=== PATIENT | female | born 1940 | race Caucasian/White ===

== ENCOUNTER 2021-11-06 23:12 | Inpatient (IN) ==
[2021-11-06] MEDS ORDERED: Tdap (Boostrix) Vaccine 0.5 ML SYRINGE IM ONE (23:34)
[2021-11-07 00:22] LABS: Basophils # 0.1 K/mcL (0.0-0.2); Basophils % 0.6 %; Eosinophils # 0.1 K/mcL (0.0-0.6); Eosinophils % 0.5 %; Hemoglobin 11.6 g/dL (11.5-15.4); Lymphocytes # 1.3 K/mcL (0.6-4.6); Lymphocytes % 13.5 %; Mean Corpuscular HGB Conc 31.4 g/dL (31.6-35.5); Mean Corpuscular Hemoglobin 27.4 pg (28.0-33.3); Mean Corpuscular Volume 87.3 fL (83.0-100.0); Mean Platelet Volume 10.4 fL (9.4-12.4); Monocytes # 0.7 K/mcL (0.0-1.3); Monocytes % 7.2 %; Neutrophils # 7.1 K/mcL (1.6-8.9); Platelet Count 172 K/mcL (140-400); Red Blood Count 4.24 M/mcL (3.82-4.97); Red Cell Distribution Width 16.4 % (11.5-14.5); Segmented Neutrophils % 76.2 %; White Blood Count 9.4 K/mcL (4.3-11.1)
[2021-11-07 00:28] LABS: INR 2.4; Prothrombin Time 26.4 Seconds (9.4-12.1)
[2021-11-07 00:29] LABS: Bilirubin,Urine Negative (Negative); Blood,Urine Small (Negative); Clarity,Urine Clear (Clear); Color,Urine Light-Yellow (Yellow); Glucose,Urine (UA) Normal (Normal); Ketones,Urine Negative (Negative); Leukocyte Esterase,Urine Negative (Negative); Mucus,Urine Few per lpf (None-Few); Nitrite,Urine Negative (Negative); Protein,Urine 70 mg/dL (Neg-Trace); Specific Gravity,Urine 1.012 (1.010-1.025); Squamous Epithelial Cell,Urine Moderate per hpf (None-Few); Urobilinogen,Urine Normal (Normal); WBC,Urine 0-3 per hpf (0-3)
[2021-11-07 00:30] LABS: Alanine Aminotransferase 28 Units/L (7-52); Albumin 3.8 g/dL (3.5-5.7); Albumin/Globulin Ratio 1.3 (1.1-2.2); Alkaline Phosphatase 104 Units/L (34-104); Aspartate Amino Transferase 39 Units/L (13-39); BUN/Creatinine Ratio 14 (6-26); Bilirubin,Direct 0.1 mg/dL (0.0-0.2); Bilirubin,Indirect 0.6 mg/dL (0.0-1.0); Bilirubin,Total 0.7 mg/dL (0.3-1.0); Blood Urea Nitrogen 36 mg/dL (8-23); Calcium 9.5 mg/dL (8.6-10.3); Carbon Dioxide 21 mEq/L (23-29); Chloride 108 mEq/L (98-107); Creatine Kinase 321 Units/L (30-223); Glucose 95 mg/dL (70-105); Lipase 16 Units/L (11-82); Osmolality,Calculated 292 (280-300); Potassium 5.1 mEq/L (3.5-5.1); Sodium 137 mEq/L (136-145); Total Protein 6.8 g/dL (6.4-8.9); Troponin I < 0.03 ng/mL (< 0.04)
[2021-11-07 00:43] LABS: Thyroid Stimulating Hormone 10.754 mcIU/mL (0.340-5.600)
[2021-11-07] MEDS ORDERED: Naloxone 0.4 MG/ML INJ IVP PRN (04:04)
[2021-11-07] MEDS ORDERED: Ondansetron ODT 4 MG TAB.RAPDIS SL PRN (04:04)
[2021-11-07] MEDS ORDERED: Melatonin 3 MG TABLET PO PRN (04:04)
[2021-11-07] MEDS ORDERED: Ringers Solution, Lactated 1,000 ML IVC SCH (04:15)
[2021-11-07 05:30] LABS: Estimated Average Glucose 123 mg/dl; Hemoglobin A1C 5.9 %
[2021-11-07] MEDS: Doxycycline 100 MG CAPSULE PO SCH ×2 (08:13→22:07)
[2021-11-07 10:47] LABS: INR 2.3
[2021-11-07] MEDS ORDERED: *HR* Warfarin 2.5 MG TABLET PO ONE (18:00)
[2021-11-07] MEDS ORDERED: Warfarin perPT PO PRN (18:00)
[2021-11-08 03:38] LABS: INR 1.5; Prothrombin Time 17.1 Seconds (9.4-12.1)
[2021-11-08] MEDS: Doxycycline 100 MG CAPSULE PO SCH ×2 (09:14→21:29)
[2021-11-08] MEDS ORDERED: *HR* FentaNYL (PF) 100 MCG/2 ML VIAL ONE (15:01)
[2021-11-08] MEDS ORDERED: *HR* Propofol 200 MG/20 ML VIAL IVP ONE (15:01)
[2021-11-08] MEDS ORDERED: Lidocaine -MPF 2% 5 ML VIAL ONE (15:02)
[2021-11-08] MEDS ORDERED: Clindamycin 900 MG/50 ML 900 MG/50 ML IV.SOLN IVPB ONE ×2 (15:08→15:13)
[2021-11-08] MEDS ORDERED: Ondansetron 4 MG/2 ML VIAL IVP PRN ×2 (15:31→17:46)
[2021-11-08] MEDS ORDERED: Albuterol 2.5 MG/3 ML NEBULIZER IH PRN (15:31)
[2021-11-08] MEDS ORDERED: Ondansetron 4 MG/2 ML VIAL ONE (15:58)
[2021-11-08] MEDS ORDERED: EPHEDrine 50 MG/ML VIAL ONE (15:58)
[2021-11-08] MEDS ORDERED: Ringers Solution, Lactated 1,000 ML ONE (17:04)
[2021-11-08] MEDS: *HR* FentaNYL (PF) 100 MCG/2 ML VIAL IVP PRN ×2 (17:05→17:15)
[2021-11-08] MEDS ORDERED: Melatonin 3 MG TABLET PO PRN (17:46)
[2021-11-08] MEDS ORDERED: *HR* Warfarin 5 MG TABLET PO SCH (17:46)
[2021-11-08] MEDS ORDERED: Naloxone 0.4 MG/ML INJ IVP PRN (17:46)
[2021-11-08] MEDS ORDERED: Ondansetron ODT 4 MG TAB.RAPDIS SL PRN (17:46)
[2021-11-08] MEDS ORDERED: Warfarin perPT PO PRN (17:46)
[2021-11-08] MEDS ORDERED: *HR* Warfarin 5 MG TABLET PO ONE (18:00)
[2021-11-08] MEDS: *HR* OxyCODONE/APAP 5/325 TABLET PO PRN (19:13)
[2021-11-08] MEDS ORDERED: DOXYCYCLINE HYCLATE 100 MG PO SCH (21:00)
[2021-11-08] MEDS ORDERED: Budesonide/Formoterol 160/4.5 1 PUFF INH IH SCH (22:00)
[2021-11-08] MEDS: Budesonide/Formoterol 160/4.5 1 PUFF INH IH SCH (22:42)
[2021-11-09] MEDS: Budesonide/Formoterol 160/4.5 1 PUFF INH IH SCH ×2 (07:30→23:04)
[2021-11-09] MEDS: Nicotine 21 MG PATCH.TD24 TD SCH (10:21)
[2021-11-09] MEDS: amLODIPine 5 MG TABLET PO SCH (10:22)
[2021-11-09] MEDS: lisinopriL 20 MG TABLET PO SCH (10:22)
[2021-11-09] MEDS: Furosemide 40 MG TABLET PO SCH (10:22)
[2021-11-09] MEDS: paricalcitoL 1 MCG CAPSULE PO SCH (10:22)
[2021-11-09] MEDS: Doxycycline 100 MG CAPSULE PO SCH ×2 (10:22→20:20)
[2021-11-09] MEDS: *HR* Glimepiride 2 MG TABLET PO SCH ×2 (10:26→17:33)
[2021-11-09 12:21] LABS: INR 1.3; Prothrombin Time 14.5 Seconds (9.4-12.1)
[2021-11-09] MEDS ORDERED: *HR* Warfarin 5 MG TABLET PO SCH (16:57)
[2021-11-09] MEDS: *HR* OxyCODONE/APAP 5/325 TABLET PO PRN (17:32)
[2021-11-09] MEDS ORDERED: *HR* Warfarin 5 MG TABLET PO ONE (18:00)
[2021-11-10] MEDS: Budesonide/Formoterol 160/4.5 1 PUFF INH IH SCH ×2 (07:35→22:00)
[2021-11-10] MEDS: Nicotine 21 MG PATCH.TD24 TD SCH (09:27)
[2021-11-10] MEDS: paricalcitoL 1 MCG CAPSULE PO SCH (09:28)
[2021-11-10] MEDS: Doxycycline 100 MG CAPSULE PO SCH ×2 (09:28→20:12)
[2021-11-10] MEDS: *HR* OxyCODONE/APAP 5/325 TABLET PO PRN (09:28)
[2021-11-10] MEDS: lisinopriL 20 MG TABLET PO SCH (09:28)
[2021-11-10] MEDS: *HR* Glimepiride 2 MG TABLET PO SCH ×2 (09:28→17:06)
[2021-11-10] MEDS: Furosemide 40 MG TABLET PO SCH (09:28)
[2021-11-10] MEDS: amLODIPine 5 MG TABLET PO SCH (09:29)
[2021-11-10 12:33] LABS: INR 1.4; Prothrombin Time 15.2 Seconds (9.4-12.1)
[2021-11-10 12:34] LABS: INR 1.4; Prothrombin Time 15.3 Seconds (9.4-12.1)
[2021-11-10] MEDS ORDERED: *HR* Warfarin 5 MG TABLET PO ONE (18:00)
[2021-11-11 02:23] LABS: INR 1.3
[2021-11-11] MEDS: Budesonide/Formoterol 160/4.5 1 PUFF INH IH SCH ×2 (08:09→23:02)
[2021-11-11] MEDS: amLODIPine 5 MG TABLET PO SCH (09:57)
[2021-11-11] MEDS: Furosemide 40 MG TABLET PO SCH (09:57)
[2021-11-11] MEDS: Nicotine 21 MG PATCH.TD24 TD SCH (09:57)
[2021-11-11] MEDS: *HR* Glimepiride 2 MG TABLET PO SCH ×2 (09:57→17:20)
[2021-11-11] MEDS: lisinopriL 20 MG TABLET PO SCH (09:57)
[2021-11-11] MEDS: *HR* OxyCODONE/APAP 5/325 TABLET PO PRN (09:57)
[2021-11-11] MEDS: paricalcitoL 1 MCG CAPSULE PO SCH (09:57)
[2021-11-11] MEDS: Doxycycline 100 MG CAPSULE PO SCH ×2 (09:57→20:32)
[2021-11-11] MEDS ORDERED: *HR* Warfarin 3 MG TABLET PO ONE (18:00)
[2021-11-12] MEDS: Budesonide/Formoterol 160/4.5 1 PUFF INH IH SCH ×2 (07:45→21:00)
[2021-11-12] MEDS: Nicotine 21 MG PATCH.TD24 TD SCH (08:51)
[2021-11-12] MEDS: *HR* Glimepiride 2 MG TABLET PO SCH ×2 (08:51→18:06)
[2021-11-12] MEDS: Furosemide 40 MG TABLET PO SCH (08:51)
[2021-11-12] MEDS: lisinopriL 20 MG TABLET PO SCH (08:51)
[2021-11-12] MEDS: Doxycycline 100 MG CAPSULE PO SCH ×2 (08:52→20:38)
[2021-11-12] MEDS: amLODIPine 5 MG TABLET PO SCH (08:52)
[2021-11-12] MEDS: paricalcitoL 1 MCG CAPSULE PO SCH (08:52)
[2021-11-12 13:17] LABS: INR 1.2; Prothrombin Time 13.9 Seconds (9.4-12.1)
[2021-11-12] MEDS ORDERED: *HR* Warfarin 3 MG TABLET PO ONE (18:00)
[2021-11-12] MEDS: *HR* OxyCODONE/APAP 5/325 TABLET PO PRN (18:05)
[2021-11-13 05:57] LABS: INR 1.4; Prothrombin Time 15.5 Seconds (9.4-12.1)
[2021-11-13 07:00] VITALS: TEMP 98
[2021-11-13] MEDS: Budesonide/Formoterol 160/4.5 1 PUFF INH IH SCH (07:33)
[2021-11-13] MEDS: paricalcitoL 1 MCG CAPSULE PO SCH (08:38)
[2021-11-13] MEDS: amLODIPine 5 MG TABLET PO SCH (08:38)
[2021-11-13] MEDS: Nicotine 21 MG PATCH.TD24 TD SCH (08:38)
[2021-11-13] MEDS: Doxycycline 100 MG CAPSULE PO SCH (08:38)
[2021-11-13] MEDS: lisinopriL 20 MG TABLET PO SCH (08:38)
[2021-11-13] MEDS: *HR* Glimepiride 2 MG TABLET PO SCH ×2 (08:38→17:32)
[2021-11-13] MEDS: Furosemide 40 MG TABLET PO SCH (08:38)
[2021-11-13 11:32] VITALS: BP 124/68; PULSE 62; O2SAT 96
[2021-11-13] MEDS ORDERED: Apixaban 5 MG TABLET PO SCH (12:15)
[2021-11-13] MEDS ORDERED: levoFLOXacin 500 MG TABLET PO ONE (12:15)
[2021-11-13 16:43] LABS: Adenovirus Not Detected (Not Detect); Bordetella Pertussis Not Detected (Not Detect); Chlamydophila pneumoniae Not Detected (Not Detect); Coronavirus 229E Not Detected (Not Detect); Coronavirus HKU1 Not Detected (Not Detect); Coronavirus NL63 Not Detected (Not Detect); Coronavirus OC43 Not Detected (Not Detect); Human Metapneumovirus Not Detected (Not Detect); Human Rhinovirus/Enterovirus Not Detected (Not Detect); Influenza A Subtype 2009 H1 Not Detected (Not Detect); Influenza B Not Detected (Not Detect); Mycoplasma pneumoniae Not Detected (Not Detect); Parainfluenza Virus 1 Not Detected (Not Detect); Parainfluenza Virus 2 Not Detected (Not Detect); Parainfluenza Virus 3 Not Detected (Not Detect); Parainfluenza Virus 4 Not Detected (Not Detect); Respiratory Syncytial Virus Not Detected (Not Detect); SARS-CoV-2 Not Detected (Not Detect)
[2021-11-13] MEDS ORDERED: Ergocalciferol (VIT D2) 50,000 UNIT (1.25MG) CAP PO SCH (16:57)
[2021-11-15] MEDS ORDERED: levoFLOXacin 250 MG TABLET PO SCH (12:30)
== END 2021-11-13 20:03 | disposition other institution (70) | DRG 940 ==
LOC: EMEROOARM 23:12 → 3ANU 23:12 → SUATTDRO 11-08 13:16
PROVIDERS: ADMIT Internal Medicine; ATTEND Internal Medicine